=== PATIENT | male | born 1955 | race Native Hawaiian/Other Pacific Islander ===

== ENCOUNTER 2018-08-16 05:47 | Emergency (ER) | payer BC ==
[2018-08-16] MEDS ORDERED: 0.9 % SODIUM CHLORIDE 1,000 ML BAG IV ONE (05:59)
[2018-08-16] MEDS ORDERED: ONDANSETRON HCL IV 4 MG/2 ML VIAL IVP ONE (05:59)
[2018-08-16] MEDS ORDERED: DICYCLOMINE HCL 10 MG CAPSULE PO ONE (06:00)
[2018-08-16 06:13] LABS: BASO % 0.3 % (0-6); EOS % 0.8 % (0-6); GRAN % 51.2 % (47-80); HEMATOCRIT 43.1 % (42.0-52.0); HEMOGLOBIN 14.6 gm/dl (14.0-18.0); LYMPH % 35.3 % (16-45); MEAN CELL VOLUME 95.1 fl (81-97); MEAN CORPUSCULAR HEMOGLOBIN 32.2 pg (27-33); MEAN CORPUSCULAR HGB CONC 33.9 g/dl (32-36); MEAN PLATELET VOLUME 9.1 fl (7.4-10.4); MONO % 12.4 % (0-9); PLATELET COUNT 219 K/uL (130-400); RED BLOOD COUNT 4.53 M/uL (4.40-5.70); RED CELL DISTRIBUTION WIDTH 12.5 % (11.5-14.5); WHITE BLOOD COUNT W/O DIFF 6.6 K/uL (4.2-12.2)
--- NOTE | 2018-08-16 06:14 | Emergency Department Record ---
History of Present Illness - General Chief complaint: Nausea, Vomiting, Diarrhea Stated complaint: VOMITING Time Seen by Provider: 08/16/18 05:58 Source: Patient Mode of Arrival: Ambulatory Limitations: No limitations - History of Present Illness Initial comments: 63 yo male presents with nausea, vomiting and diarrhea for 3 days. The onset was Sunday. His fiance developed the symptoms at the same time. She is improved. No blood in the vomit or the diarrhea. No fever. He thinks he was exposed to a sick child at a dinner libertarian this week. No history of abdominal disease. No history of abdominal surgery. He reports he has had a prior colonoscopy that was normal. MD complaint: Abdominal pain, Diarrhea, Nausea, Vomiting -: Days(s) (3) Description of Vomiting: Watery Description of Diarrhea: Water Location: Diffuse Radiation: Other (diffuse) Quality: Cramping, Sharp Consistency: Intermittent Improves with: None Worsens with: Eating Context: Sick contacts Associated Symptoms: Denies other symptoms, Loss of appetite - Related Data Previous Rx's Medication Instructions Recorded Dicyclomine HCl [Bentyl] 10 mg PO Q8H #12 cap 08/16/18 Ondansetron [Zofran Odt] 4 mg PO NOW #12 tab.rapdis 08/16/18 Allergies Allergy/AdvReac Type Severity Reaction Status Date / Time No Known Drug Allergies Allergy Verified 08/16/18 06:02 Review of Systems Constitutional: Denies: Chills, Fever, Malaise, Weakness Eyes: Denies: Eye discharge, Photophobia, Vision change ENT: Denies: Congestion, Throat pain Respiratory: Denies: Cough, Dyspnea Cardiovascular: Denies: Chest pain, Palpitations, Syncope Endocrine: Reports: Fatigue. Denies: Polydipsia, Polyuria Gastrointestinal: Reports: Abdominal pain, Diarrhea, Nausea, Vomiting. Denies: Constipation, Hematemesis, Hematochezia, Melena Genitourinary: Denies: Dysuria, Frequency, Hematuria Musculoskeletal: Denies: Arthralgia, Back pain, Myalgia Skin: Denies: Bruising, Change in color, Rash Neurological: Denies: Headache Psychiatric: Denies: Anxiety Hematological/Lymphatic: Denies: Easy bleeding, Easy bruising, Swollen glands Physical Exam - General General Appearance: Alert, Oriented x3, Cooperative, No acute distress Limitations: No limitations - Head Head exam: Atraumatic, Normal inspection - Eye Eye exam: Normal appearance, PERRL. negative: Conjunctival injection, Scleral icterus - ENT ENT exam: Normal exam, Mucous membranes moist, Normal orophraynx Ear exam: Normal external inspection Nasal Exam: Normal inspection Mouth exam: Normal external inspection - Neck Neck exam: Normal inspection - Respiratory Respiratory exam: Normal lung sounds bilaterally. negative: Respiratory distress - Cardiovascular Cardiovascular Exam: Regular rate, Normal rhythm, Normal heart sounds - GI/Abdominal GI/Abdominal exam: Soft, Tenderness (Mild diffuse tenderness but very soft abdomen). negative: Distended, Guarding, Rebound, Rigid - Rectal Rectal exam: Deferred - exam: Deferred - Extremities Extremities exam: Normal inspection. negative: Tenderness - Back Back exam: Denies: CVA tenderness (R), CVA tenderness (L) - Neurological Neurological exam: Alert, Oriented X3. negative: Altered - Psychiatric Psychiatric exam: Normal affect, Normal mood. negative: Agitated, Anxious - Skin Skin exam: Dry, Intact, Normal color, Warm Course Vital Signs 08/16/18 05:54 Temperature 98 F Pulse Rate [ 75 Pulse Ox Probe] Respiratory 20 Rate Blood Pressure 140/89 [Left Arm] Pulse Ox 98 - Reevaluation(s) Reevaluation #1: 08/16/18 06:21 The vitals were reviewed No acute significant changes The CBC is normal on review 08/16/18 06:36 No acute changes on the CMP The patient reports some improvement after the fluids and medication Medical Decision Making - Lab Data Result diagrams: 08/16/18 06:10 08/16/18 06:10 Disposition Disposition: Discharge Clinical Impression: Vomiting and diarrhea Disposition: Home, Self-Care Condition: (1) Good Instructions: Acute Nausea and Vomiting (ED), Acute Diarrhea (ED) Additional Instructions: Call your doctor for the next available follow up appointment Return to the ER for a recheck if worse, any new concerns or questions Take the prescriptions provided as directed Review this ER visit and the tests performed with your family doctor Prescriptions: Dicyclomine HCl [Bentyl] 10 mg PO Q8H #12 cap Ondansetron [Zofran Odt] 4 mg PO NOW #12 tab.rapdis Forms: Patient Portal Access Time of Disposition: 06:37 Quality - Quality Measures Quality Measures: N/A - Blood Pressure Screening Does Patient Have Any of the Following: No Blood Pressure Classification: Pre-Hypertensive BP Reading Systolic Measurement: 140 Diastolic Measurement: 89 Screening for High Blood Pressure: < Pre-Hypertensive BP, F/U Documented > [ [id number]] Pre-Hypertensive Follow-up Interventions: Referral to alternative/primary care provider.
[2018-08-16 06:27] LABS: BLOOD UREA NITROGEN 17 mg/dL (8-23); CREATININE 0.7 mg/dL (0.7-1.2); EST GLOMERULAR FILTRATION RATE > 60 mL/min
[2018-08-16 06:28] LABS: TOTAL PROTEIN 6.7 g/dL (6.6-8.7)
[2018-08-16 06:30] LABS: GLUCOSE,RANDOM 173 mg/dL (74-109)
[2018-08-16 06:32] LABS: ALT/SGPT 19 U/L (<41); AST/SGOT 15 U/L (10.0-50.0)
[2018-08-16 06:33] LABS: ALB/GLOB RATIO 1.5 (1.1-1.8); ALKALINE PHOSPHATASE 48 U/L (40-129)
== END 2018-08-16 06:59 | disposition home or self-care (01) ==
LOC: ER 05:47
DX: R11.2 Nausea with vomiting, unspecified (principal); R19.7 Diarrhea, unspecified
CPT/HCPCS: 80053; 85025; 96361; 96374; 99284; J2405; J7030

== ENCOUNTER 2019-05-13 06:03 | Day surgery (SDC) | payer BC ==
[~2019-05-13 06:03] MED LIST: CEFAZOLIN 2 Gram 2 GM/50 ML BAG IVPB ONE; FAMOTIDINE 20MG TABLET PO ONE; MECLIZINE 25 MG TABLET PO ONE; METOCLOPRAMIDE 10 MG TABLET PO ONE
[2019-05-13] MEDS ORDERED: DEXAMETHASONE 4 MG/ML 1ML VIAL IVP ONE (06:04)
[2019-05-13] MEDS ORDERED: PROPOFOL 10 MG/ML VIAL IV ONE (06:04)
[2019-05-13] MEDS ORDERED: ROPIVACAINE HCL (NAROPIN) /PF 5MG/ML 20ML VIAL IV ONE (06:04)
[2019-05-13] MEDS ORDERED: LIDOCAINE 2% MDV (20MG/ML) 20ML VIAL IV ONE (06:04)
[2019-05-13] MEDS ORDERED: MIDAZOLAM HCL 2MG/2ML VIAL IV ONE (06:04)
[2019-05-13] MEDS ORDERED: RINGERS SOLUTION,LACTATED 1,000 ML IV ONE ×2 (06:35→08:25)
[2019-05-13] MEDS ORDERED: TRANEXAMIC ACID 1,000 MG/10 ML ML IVPB ONE (08:40)
--- NOTE | 2019-05-13 10:14 | Operative Note ---
DATE OF SURGERY: 05/13/2019 SURGEON: Derek Tabares D.O. REFERRING PHYSICIAN: Edgar Yen M.D. PREOPERATIVE DIAGNOSIS: OSTEOARTHRITIS OF THE RIGHT KNEE. POSTOPERATIVE DIAGNOSIS: OSTEOARTHRITIS OF THE RIGHT KNEE. OPERATION: RIGHT TOTAL KNEE ARTHROPLASTY. This 64-year-old male was taken to the Operating Room and placed in the supine position on the operating room table. A spinal anesthetic was induced by the Department of Anesthesia. The right lower extremity was then elevated, it was prepped with Hibiclens and draped in the usual sterile fashion. It was exsanguinated and the tourniquet inflated to 300 mmHg. All scrub personnel wore personal isolation suits. An anterior longitudinal midline incision was made followed by a medial parapatellar arthrotomy incision. An intracondylar drill hole was made for the intramedullary alignment gina and a 6 degrees valgus 9 mm cut was made in the distal femur and the wafer of bone was removed. A sizing jig was affixed and a size 75 was seen to be the appropriate size in the anterior posterior dimension, but too wide in the medial lateral direction, therefore, the pin sites were moved 2 mm anteriorly and then we cut a size 72.5 which was the appropriate size in the medial lateral direction. The wafers of bone were removed and the cutting block had been placed in 3 degrees of external rotation. We then directed our attention to the proximal tibia and an extramedullary alignment guide was used to cut the proximal tibia and the extramedullary guide was affixed and set so that the cutting block was at a 3 degree posterior slope cut referencing initially a 4 mm cut off the lateral side because 10 mm off the medial side was too much bone to be removed, therefore, we eventually cut 8 mm referencing off the lateral tibial plateau. This cut is below the subchondral bone and gave us the appropriate resection. The wafers of bone were removed, remnants of the menisci and osteophytes were removed from the posterior aspect of the joint. The wound was copiously irrigated with lactated Ringer's solution. We measured the tibia to be a size 83 and a stem punch was used. The wound was copiously irrigated with lactated Ringer's solution again. The patella was cut and restored to anatomic heights with a 37 x 8.6 mm trial. The remainder of the trial components were inserted and a 10 mm bearing was seen to be the appropriate size. The knee was taken through range of motion with excellent stability of all components through full extension to 130-135 degrees of flexion. All trial components were then removed and the wound again copiously irrigated with pulse lavage lactated Ringer's solution. All bony surfaces were dried, all components were cemented into place and excess cement was removed after the insertion of each component. The tibial baseplate was cemented first followed by the insertion of the tibial bearing, the femoral component, and then finally the patella was cemented as well. Once the cement had hardened, the knee was again taken through range of motion and again found to be stable. We placed a drain through a separate stab incision, the arthrotomy incision was then closed with #2 Vicryl, the subcutaneous tissue was closed with 0 Vicryl, the skin was stapled, sterile dressings with Polar Care were applied and the patient was taken to the Recovery Room in satisfactory condition. GROSS PATHOLOGY: The patient demonstrated advanced lateral compartment osteoarthritis, full thickness articular cartilage loss noted on both sides of the joint, advanced degenerative disease of the patellofemoral joint was also identified with Grade 2 changes noted in the medial compartment. FINAL COMPONENTS INSERTED: [employer] Vanguard 72.5 cruciate retaining femur, an 83 tibial baseplate, a 10 mm anterior stabilized E1 bearing, and a 37 x 8.6 mm patella was used. JOB NUMBER: [id number] MTDD
[2019-05-13] MEDS ORDERED: SENNOSIDES/DOCUSATE SODIUM UD CAPSULE PO PRN (10:30)
[2019-05-13] MEDS ORDERED: ZOLPIDEM TARTRATE 5 MG TABLET PO PRN (10:30)
[2019-05-13] MEDS ORDERED: TRAMADOL HCL 50 MG TABLET PO PRN (10:30)
[2019-05-13] MEDS ORDERED: METOCLOPRAMIDE HCL 10 MG/2 ML VIAL IVP PRN (10:30)
[2019-05-13] MEDS ORDERED: HYDROCODONE/APAP 5/325MG TABLET PO PRN ×2 (10:30)
[2019-05-13] MEDS ORDERED: AL HYDROX/MAG HYDROX 30ML UD PO PRN (10:30)
[2019-05-13] MEDS ORDERED: ONDANSETRON HCL IV 4 MG/2 ML VIAL IVP PRN (10:30)
[2019-05-13] MEDS ORDERED: MAGNESIUM HYDROXIDE 30 ML UDC PO PRN (10:30)
[2019-05-13] MEDS ORDERED: NALOXONE 0.4 MG/1 ML VIAL IVP PRN (10:30)
[2019-05-13] MEDS ORDERED: DIPHENHYDRAMINE HCL 25 MG CAPSULE PO PRN (10:30)
[2019-05-13] MEDS ORDERED: OXYCODONE HCL/APAP 5MG/325MG TABLET PO PRN (10:30)
[2019-05-13] MEDS: RINGERS SOLUTION,LACTATED 1,000 ML IV SCH (12:46)
--- NOTE | 2019-05-13 13:36 | Rehab Evaluation ---
Patient Information - Patient Information Diagnosis: R knee DJD Ordered Treatment: PT Evaluate and Treat Status: Initial Evaluation Surgery: Yes (R TKA) Date of Surgery: 05/13/19 Past Medical/Surgical Hx: PAST MEDICAL/SURGICAL HISTORY Past Surgical History R knee-repair of miniscus tear; Lithotripsy PMH - Respiratory Hx Respiratory Disorders No PMH - Cardiovascular Hx Cardiovascular Disorders Yes Exercise Tolerance Good Comment: high cholesterol PMH - Neuro Hx Neurological Disorders No PMH - GI Hx Gastrointestinal Disorders No PMH - Hx Genitourinary Disorders Yes Hx Kidney Stones Yes PMH - Endocrine Hx Endocrine Disorders Yes Hx Diabetes Yes Hx of NIDDM Yes Comment: BLOOD SUGARS 120-170 A1C 6.9 PMH - Musculoskeletal Hx Musculoskeletal Disorders Yes Hx Arthritis Yes PMH - Psych Hx Psychiatric Problems No PMH - Hematology/Oncology Hx Hematology/Oncology No Disorders Premorbid Status: Detail (The patient was independent with mobility prior to surgery.) Social History: Detail (The haroldo lives with spouse in a one story house with 3 steps at the enterance and no hand rails. The bathroom is equipped with : a walk in shower, elevated toilet. No grab bars are present in the bathroom.) Precautions: [place], Fall, Other (WBAT on the R LE) - Time With Patient Total Time Spent With Patient (Min): 30 Treatment Procedures: Detail (Initial Evaluation, low complexity) Subjective Information - Subjective Information Per Patient (The patient has complaints of level 4 knee pain using 0-10 pain scale.) Objective Data - Mental Status Patient Orientation: Oriented x3 - Visual Perception Appears within normal limits for therapeutic activities - ROM Not within normal limits (The patient's R knee was limited s/p surgery. All other LE AROM was WNL.) - Strength/Tone Other (The patient's LE strength was not tested s/p surgery, however is functional.) - Bed Mobility Independent (The patient was independent with supine to and from sit transfer.) - Transfers Independent (The patient was independent with sit to and from stand transfer.) - Balance Balance Sitting: Good Balance Standing: Good - Gait Detail (The patient ambulated with front wheeled walker to bathroom ( 10 feet x 2) WBAT on the R LE with supervision for safety. The patient declined to walk in the hallway secondary to numbness in L foot. Pt. to ambulate with nursing staff later.) Therapy Assessment - Therapy Assessment Detail (The patient was independent with bed mobility and transfers and ambulated with supervision for safety only. The patient will be seen for 1-2 PT sessions to complete inpt. PT goals.) Problem List - Problem List Physical Therapy Problem List: Detail (Decreased R LE AROM and R LE strength) Goals - Goals Physical Therapy Goals: 1) The patient will ambulate with assistive device WBAT on the R LE household distances independently. 2) The patient will ambulate on stairs using proper technique with supervision for safety. 3) The patient angela be independent with TKA HEP. Prognosis - Prognosis Good Plan - Plan Physical Therapy Plan: PT 1-2 sessions for gait training on levels and stairs and instruction in TKA HEP.
[2019-05-13] MEDS ORDERED: FLU VAC QS 2019-20 (INPT, 6MO+) 60MCG/0.5ML IM ONE (14:04)
[2019-05-13] MEDS: CEFAZOLIN 2 Gram 2 GM/50 ML BAG IVPB SCH ×2 (15:26→22:43)
[2019-05-13] MEDS ORDERED: FONDAPARINUX 2.5 MG/0.5 ML SYR SQ SCH (16:00)
[2019-05-13] MEDS: METFORMIN 500 MG TABLET PO SCH (17:15)
[2019-05-13] MEDS: GLIPIZIDE 5 MG TABLET PO SCH (17:15)
[2019-05-13] MEDS: TRAMADOL HCL 50 MG TABLET PO PRN (18:17)
[2019-05-13] MEDS: ASPIRIN 325 MG TAB ENTERIC-COATED PO SCH (21:21)
[2019-05-13] MEDS: OXYCODONE HCL/APAP 5MG/325MG TABLET PO PRN (21:22)
[2019-05-13] MEDS ORDERED: SIMVASTATIN 10MG TABLET PO SCH (22:00)
[2019-05-14] MEDS: TRAMADOL HCL 50 MG TABLET PO PRN ×3 (00:17→12:53)
[2019-05-14] MEDS: OXYCODONE HCL/APAP 5MG/325MG TABLET PO PRN ×3 (03:26→14:42)
[2019-05-14] MEDS: RINGERS SOLUTION,LACTATED 1,000 ML IV SCH (05:09)
[2019-05-14] MEDS: METFORMIN 500 MG TABLET PO SCH ×2 (06:30→11:35)
[2019-05-14] MEDS: GLIPIZIDE 5 MG TABLET PO SCH (06:31)
[2019-05-14] MEDS: CEFAZOLIN 2 Gram 2 GM/50 ML BAG IVPB SCH (06:32)
[2019-05-14 07:12] LABS: PROTHROMBIN TIME (PATIENT) 10.6 SECONDS (9.5-12.1)
[2019-05-14] MEDS: HYDROMORPHONE HCL 2 MG/ML VIAL IV PRN ×2 (09:06→12:33)
--- NOTE | 2019-05-14 10:18 | Physical Therapy Tx Note ---
Physical Therapy Tx Note - Treatment Note Tolerated: Good Total Time Spent With Patient: 35 Physical Therapy Tx Note: Detail (Patient states 4/10 pain in right knee. Patient was sitting in chair upon SPD TECH arrival. Patient transferred sit to and from stand SBA x1. Patient ambulated 320 feet with wheeled walker SBA x1. Patient descended and ascended 3 steps with using stairwell railing and walker CGA x1. Patient transferred sit to supine independently. Patient performed the following exercises x5-10 reps each: ankle pumps, glut squeezes, quad sets, heel slides, assisted SLR, and assisted SAQ. Patient tolerated treatment well. Patient displays good understanding of HEP, ambulation with walker, and stair climbing. Patient was left reclined in bed with cryo on knee and call light within reach.) Physical Therapy Problem List: Detail (Decreased R LE AROM and R LE strength) Physical Therapy Goals: 1) The patient will ambulate with assistive device WBAT on the R LE household distances independently. Met. 2) The patient will ambulate on stairs using proper technique with supervision for safety. Met. 3) The patient angela be independent with TKA HEP. Met. Prognosis: Good Physical Therapy Plan: Patient discharged from inpatient PT at this time as all goals are met.
--- NOTE | 2019-05-14 10:39 | Rehab Evaluation ---
Patient Information - Patient Information Diagnosis: R knee DJD Ordered Treatment: OT Evaluate and Treat Status: Initial Evaluation Surgery: Yes (R TKA) Date of Surgery: 05/13/19 Past Medical/Surgical Hx: PAST MEDICAL/SURGICAL HISTORY Past Surgical History R knee-repair of miniscus tear; Lithotripsy PMH - Respiratory Hx Respiratory Disorders No PMH - Cardiovascular Hx Cardiovascular Disorders Yes Exercise Tolerance Good Comment: high cholesterol PMH - Neuro Hx Neurological Disorders No PMH - GI Hx Gastrointestinal Disorders No PMH - Hx Genitourinary Disorders Yes Hx Kidney Stones Yes PMH - Endocrine Hx Endocrine Disorders Yes Hx Diabetes Yes Hx of NIDDM Yes Comment: BLOOD SUGARS 120-170 A1C 6.9 PMH - Musculoskeletal Hx Musculoskeletal Disorders Yes Hx Arthritis Yes PMH - Psych Hx Psychiatric Problems No PMH - Hematology/Oncology Hx Hematology/Oncology No Disorders Premorbid Status: Detail (The patient was independent with mobility prior to surgery. 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 The bathroom is equipped with a walk in shower and slightly elevated toilet. No grab bars are present in the bathroom. He has a 2 wheeled walker.) Precautions: [place], Fall, Other (WBAT on the R LE) - Time With Patient Total Time Spent With Patient (Min): 35 Treatment Procedures: Detail (OT eval low complexity) Subjective Information - Subjective Information Per Patient Objective Data - Pain Pain Present: Yes (07/24) - Mental Status Patient Orientation: Oriented x3 - Visual Perception Appears within normal limits for therapeutic activities - ROM Within normal limits (Jassi UE AROM WNL) - Strength/Tone Within normal limits (Jassi UE strength WNL) - Coordination Appears within normal limits for therapeutic activities - Bed Mobility Independent (Ind with supine to sit and sit to supine.) - Transfers Independent (Ind with sit to stand from EOB.) - Balance Balance Sitting: Good Balance Standing: Good - Sensation Intact - ADL's/IADL's Detail (Pt educated and able to demonstrate modified LE dressing techniques including doffing briefs and slipper socks and donning boxer shorts, sweat pants and slipper socks. Reviewed kitchen and shower safety and modifications, pt verbalized understanding.) Therapy Assessment - Therapy Assessment Detail (Pt is Ind with modified LE dressing techniques.) Problem List - Problem List Physical Therapy Problem List: Detail (Decreased R LE AROM and R LE strength) Occupational Therapy Problem List: Detail (No current IP OT problems identified.) Goals - Goals Physical Therapy Goals: 1) The patient will ambulate with assistive device WBAT on the R LE household distances independently. Met. 2) The patient will ambulate on stairs using proper technique with supervision for safety. Met. 3) The patient angela be independent with TKA HEP. Met. Occupational Therapy Goals: No current IP OT goals identified. Prognosis - Prognosis Good Plan - Plan Physical Therapy Plan: Patient discharged from inpatient PT at this time as all goals are met. Occupational Therapy Plan: Pt is discharged from IP OT. Thank you for this referral.
[2019-05-14] MEDS: ASPIRIN 325 MG TAB ENTERIC-COATED PO SCH (11:39)
== END 2019-05-14 15:20 | disposition home health service (06) ==
LOC: SUR 06:03 → MEDSURG 09:59 → SUR 05-14 15:20
PROVIDERS: ATTEND Orthopaedic Surgery
DX: M17.11 Unilateral primary osteoarthritis, right knee (principal); E11.9 Type 2 diabetes mellitus without complications; E78.00 Pure hypercholesterolemia, unspecified
CPT/HCPCS: 27447; 01402; 64447; 85610; 36416; 82948; J3490; J1170; J0690 ×2; J1652; J2795; 76942; J7120